=== PATIENT | male | born 1985 | race Caucasian/White ===

== ENCOUNTER 2017-05-31 23:38 | Emergency (ER) | payer OTHER ==
[2017-05-31 23:54] VITALS: RESP 16; O2SAT 100
[2017-06-01] MEDS ORDERED: Sodium Chloride 0.9% 1,000 ML IV ONE (00:03)
--- NOTE | 2017-06-01 00:04 | C.PDOC ---
History Of Present Illness 32 year old male presents to the ER with complaints of burning epigastric pain radiating up into his chest, nausea, vomiting, and watery diarrhea since approximately 17:00. Patient reports he ate [employer] earlier today. He denies recent sick contacts, dysuria/hematuria. Time Seen by Provider: 05/31/17 23:48 Chief Complaint (Nursing): Abdominal Pain History Per: Patient History/Exam Limitations: no limitations Onset/Duration Of Symptoms: Hrs Current Symptoms Are (Timing): Still Present Severity: Moderate Location Of Pain/Discomfort: Epigastric Radiation Of Pain To:: Chest Quality Of Discomfort: Burning Associated Symptoms: Nausea, Vomiting, Diarrhea Exacerbating Factors: None Alleviating Factors: None Past Medical History Reviewed: Historical Data, Nursing Documentation, Vital Signs Vital Signs: Last Vital Signs Temp 98.8 F 06/01/17 02:04 Pulse 80 06/01/17 02:04 Resp 16 06/01/17 02:04 BP 110/67 06/01/17 02:04 Pulse Ox 100 06/01/17 02:04 - Medical History PMH: Hypercholesterolemia Surgical History: No Surg Hx Family History: States: No Known Family Hx - Social History Hx Tobacco Use: No Hx Alcohol Use: Yes (social) Hx Substance Use: No - Immunization History Hx Tetanus Toxoid Vaccination: Yes (3 years ago) Hx Influenza Vaccination: No Hx Pneumococcal Vaccination: No Review Of Systems Except As Marked, All Systems Reviewed And Found Negative. Constitutional: Negative for: Fever, Chills Cardiovascular: Negative for: Chest Pain Respiratory: Negative for: Cough, Shortness of Breath Gastrointestinal: Positive for: Nausea, Vomiting, Abdominal Pain (Epigastric radiating to chest), Diarrhea Physical Exam - Physical Exam Appears: Well, Non-toxic, Other (Anxious, Mildly uncomfortable) Skin: Normal Color, Warm, Dry Oral Mucosa: Moist Neck: Supple Cardiovascular: Rhythm Regular Respiratory: Normal Breath Sounds, No Rales, No Rhonchi, No Wheezing Gastrointestinal/Abdominal: Bowel Sounds, Soft, Tenderness (Mild epigastric TTP) , No Guarding, No Rebound, No Other (Mcburney's, Huff's) Back: Normal Inspection, No CVA Tenderness Neurological/Psych: Oriented x3 ED Course And Treatment - Laboratory Results Result Diagrams: 06/01/17 00:43 06/01/17 00:43 O2 Sat by Pulse Oximetry: 100 (Room air) Pulse Ox Interpretation: Normal Progress Note: Blood work, UA ordered and reviewed. Patient given IV NS bolus, IV pepcid and IV zofran. Reevaluation Time: :50 Reassessment Condition: Improved (On reassessment, patient is resting comfortably and states he is feeling better. On exam, abdomen is soft and nontender. Rxs given for pepcid, zofran and bentyl. Patient instructed to drink plenty of clear fluids, advance to bland diet slowly, and to follow up with PMD/clinic in 1-2 days. He understands he should return to ED if symptoms worsen.) Disposition Counseled Patient/Family Regarding: Studies Performed, Diagnosis, Need For Followup, Rx Given - Disposition Referrals: [facility] [Outside] Disposition: HOME/ ROUTINE Disposition Time: :50 Condition: STABLE Additional Instructions: SEGUIMIENTO CON CROWDER MDICO / CLNICA EN 1-2 CASTELLANOS USE MEDICAMENTOS SEGN SEA NECESARIO YOHAN UN MONTN DE FLUIDOS GARRISON REGRESE AL LORENA DE EMERGENCIA SI LOS SNTOMAS EMPEORAN Prescriptions: Dicyclomine [Bentyl] 20 mg PO Q6 PRN #12 tab PRN Reason: ABDOMINAL CRAMPING Famotidine [Pepcid] 20 mg PO BID PRN #15 tab PRN Reason: abdominal Ondansetron [Zofran Odt] 4 mg PO Q8 PRN #12 odt PRN Reason: Nausea/Vomiting Instructions: Acute Nausea and Vomiting (ED), Acute Diarrhea (ED) Forms: [facility] (Kiswahili), Work Excuse Print Language: TRISTANIAN - POA Present On Arrival: None - Clinical Impression Clinical Impression: Diarrhea, Vomiting, Nausea - Scribe Statement The provider has reviewed the documentation as recorded by the Scribtay Zimmerman All medical record entries made by the Scribe were at my direction and personally dictated by me. I have reviewed the chart and agree that the record accurately reflects my personal performance of the history, physical exam, medical decision making, and the department course for this patient. I have also personally directed, reviewed, and agree with the discharge instructions and disposition.
[2017-06-01] MEDS ORDERED: Sodium Chloride 0.9% 1,000 ML ONE (00:29)
[2017-06-01 00:48] LABS: BASO # 0.1 K/uL (0.0-0.2); BASO % 0.6 % (0.0-2.0); EOS # 0.1 K/uL (0.0-0.7); EOS % 0.5 % (0.0-4.0); HEMATOCRIT 43.2 % (35.0-51.0); LYMPH # 1.7 K/uL (1.0-4.3); LYMPH % 14.3 % (20.0-40.0); MEAN CELL VOLUME 87.2 fL (80.0-94.0); MEAN CORPUSCULAR HEMOGLOBIN 29.9 pg (27.0-31.0); MEAN CORPUSCULAR HGB CONC 34.3 g/dL (33.0-37.0); MEAN PLATELET VOLUME 8.1 fL (7.2-11.7); MONO # 0.8 K/uL (0.0-0.8); MONO % 6.8 % (0.0-10.0); RED CELL DISTRIBUTION WIDTH 13.7 % (11.5-14.5); WHITE BLOOD COUNT 11.9 K/uL (4.8-10.8)
[2017-06-01 00:54] LABS: CHLORIDE 100 mmol/L (98-107)
[2017-06-01 00:55] LABS: POTASSIUM 3.6 mmol/L (3.6-5.2); SODIUM 136 mmol/L (132-148)
[2017-06-01 00:57] LABS: ALB/GLOB RATIO 1.2 (1.0-2.1); ALKALINE PHOSPHATASE 74 U/L (38-126); ALT/SGPT 67 U/L (21-72); AST/SGOT 33 U/L (17-59); BLOOD UREA NITROGEN 17 mg/dL (9-20); CARBON DIOXIDE 24 mmol/L (22-30); GFR AFRICAN-AMERICAN > 60; GLUCOSE,RANDOM 110 mg/dL (75-110); TOTAL PROTEIN 8.4 g/dL (6.3-8.3)
[2017-06-01 01:03] LABS: RBC URINE 1 /hpf (0-3); URINE BILIRUBIN NEGATIVE (NEGATIVE); URINE COLOR Yellow (YELLOW); URINE GLUCOSE (UA) NORMAL (Normal); URINE KETONE NEGATIVE (NEGATIVE); URINE LEUKOCYTE ESTERASE NEG Leu/uL (Negative); URINE PROTEIN 1+ mg/dL (NEGATIVE); URINE UROBILINOGEN NORMAL mg/dL (0.2-1.0); WBC URINE 2 /hpf (0-5)
[2017-06-01 01:05] LABS: URINE BLOOD NEGATIVE (NEGATIVE)
[2017-06-01 02:05] VITALS: BP 110/67; PULSE 80; TEMP 98.8
== END 2017-06-01 02:04 | disposition home or self-care (01) ==
LOC: C.ER 23:38
DX: R11.2 Nausea with vomiting, unspecified (principal); R19.7 Diarrhea, unspecified; E78.00 Pure hypercholesterolemia, unspecified
CPT/HCPCS: 80053; 81001; 83690; 85025; 96361; 96374; 96375; 99284; J2405; J7040

== ENCOUNTER 2017-11-26 18:45 | Emergency (ER) | payer SELFPAY ==
[2017-11-26 19:00] VITALS: RESP 20
--- NOTE | 2017-11-26 19:50 | C.PDOC ---
History Of Present Illness 32 y/o male, referred by Mellissa Arauz APN at [facility], presents to the ER complaining of mid sternal chest pain which has been present since last night. Patient states the pain is intermit and radiation l arm. Occ sob. Patient reports that he took Aspirin 160 mg at 4 pm today. He notes that he had similar episode of chest pain in the past but he does not remember if he had a follow-up. He denies having associated symptoms at this time. Time Seen by Provider: 11/26/17 19:08 Chief Complaint (Nursing): Chest Pain History Per: Patient History/Exam Limitations: no limitations Onset/Duration Of Symptoms: Days Current Symptoms Are (Timing): Still Present Severity: Moderate Past Medical History Reviewed: Historical Data, Nursing Documentation, Vital Signs Vital Signs: Last Vital Signs Temp 99.5 F 11/26/17 18:58 Pulse 77 11/26/17 20:32 Resp 20 11/26/17 20:32 BP 131/78 11/26/17 20:32 Pulse Ox 97 11/26/17 20:32 - Medical History PMH: Hypercholesterolemia Surgical History: No Surg Hx Family History: States: No Known Family Hx - Social History Hx Tobacco Use: No Hx Alcohol Use: Yes (social) Hx Substance Use: No - Immunization History Hx Tetanus Toxoid Vaccination: Yes Hx Influenza Vaccination: No Hx Pneumococcal Vaccination: No Review Of Systems Except As Marked, All Systems Reviewed And Found Negative. Constitutional: Negative for: Fever, Chills Cardiovascular: Positive for: Chest Pain. Negative for: Palpitations Respiratory: Negative for: Cough, Shortness of Breath Physical Exam - Physical Exam Appears: Non-toxic, No Acute Distress Skin: Normal Color, Warm Head: Atraumatic, Normacephalic Eye(s): bilateral: Normal Inspection Cardiovascular: Rhythm Regular Respiratory: Normal Breath Sounds, No Rales, No Rhonchi, No Wheezing Neurological/Psych: Oriented x3, Normal Speech ED Course And Treatment - Laboratory Results Result Diagrams: 11/26/17 20:14 11/26/17 20:14 O2 Sat by Pulse Oximetry: 98 (RA) Pulse Ox Interpretation: Normal - Radiology CXR: Interpreted by Me, Viewed By Me CXR Interpretation: Yes: No Acute Disease Progress - Re-Evaluation Re-evaluation Note: 11/26/17 20:50 exam unch prior vss d/w dr helton will admit. REQUESTING UDS - Data Reviewed Data Reviewed: Lab, Diagnostic imaging, EKG (NSR , 81 bpm), Old records Medical Decision Making Medical Decision Making: Plan: --Labs --EKG --CXR Disposition Counseled Patient/Family Regarding: Studies Performed, Diagnosis - Disposition Disposition: HOSPITALIZED Disposition Time: 20:50 Condition: STABLE Forms: [facility] (Anguillan) - POA Present On Arrival: None - Clinical Impression Clinical Impression: Chest pain, SOB (shortness of breath) - Scribe Statement The provider has reviewed the documentation as recorded by the Rickyibe Denis Land Provider Attestation: All medical record entries made by the Scribe were at my direction and personally dictated by me. I have reviewed the chart and agree that the record accurately reflects my personal performance of the history, physical exam, medical decision making, and the department course for this patient. I have also personally directed, reviewed, and agree with the discharge instructions and disposition. Decision To Admit - Pt Status Changed To: Hospital Disposition Of: Observation - . Bed Request Type: Telemetry Admitting Physician: Willie Helton Patient Diagnosis: Chest pain, SOB (shortness of breath)
[2017-11-26 20:15] LABS: BASO % 0.5 % (0.0-2.0); EOS % 0.7 % (0.0-4.0); HEMOGLOBIN 14.4 g/dL (12.0-18.0); LYMPH # 2.8 K/uL (1.0-4.3); MEAN CELL VOLUME 86.2 fL (80.0-94.0); MEAN CORPUSCULAR HEMOGLOBIN 30.6 pg (27.0-31.0); MEAN CORPUSCULAR HGB CONC 35.5 g/dL (33.0-37.0); MEAN PLATELET VOLUME 7.6 fL (7.2-11.7); MONO # 0.3 K/uL (0.0-0.8); MONO % 5.2 % (0.0-10.0); NEUT # 3.5 K/uL (1.8-7.0); NEUT % 52.6 % (50.0-75.0); RBC 4.71 Mil/uL (4.40-5.90); RED CELL DISTRIBUTION WIDTH 13.5 % (11.5-14.5); WHITE BLOOD COUNT 6.7 K/uL (4.8-10.8)
[2017-11-26 20:28] LABS: ALB/GLOB RATIO 1.2 (1.0-2.1); ALBUMIN 4.3 g/dL (3.5-5.0); ALT/SGPT 41 U/L (21-72); AST/SGOT 30 U/L (17-59); BLOOD UREA NITROGEN 13 mg/dL (9-20); GFR AFRICAN-AMERICAN > 60; GFR NON-AFRICAN AMERICAN > 60
[2017-11-26 20:33] VITALS: BP 131/78; PULSE 77
[2017-11-26] MEDS ORDERED: Nitroglycerin 2% Ointment Foilpak UD TOP STA (20:34)
[2017-11-26] MEDS ORDERED: Nitroglycerin 2% Ointment Foilpak UD TOP ONE (20:40)
[2017-11-26 20:51] VITALS: O2SAT 98
[2017-11-26 21:14] LABS: BARBITURATES, UR NEGATIVE (NEGATIVE); BENZODIAZEPINES, UR NEGATIVE (NEGATIVE); OPIATES, UR NEGATIVE (NEGATIVE); PHENCYCLIDINE, UR NEGATIVE (NEGATIVE)
[2017-11-26 21:36] VITALS: TEMP 98
--- NOTE | 2017-11-27 10:24 | RAD ---
PROCEDURE: CHEST RADIOGRAPH, 1 VIEW HISTORY: Chest pain COMPARISON: Comparison chest dated 02/22/2016 FINDINGS: LUNGS: Clear. PLEURA: No pneumothorax or pleural fluid seen. CARDIOVASCULAR: Heart appears mildly enlarged. OSSEOUS STRUCTURES: No significant abnormalities. VISUALIZED UPPER ABDOMEN: Normal. OTHER FINDINGS: None. IMPRESSION: No acute infiltrates.
== END 2017-11-26 21:16 | disposition left against medical advice (07) ==
LOC: C.ER 18:45 → C.9E 20:51 → UNDOADMOB 20:51 → C.6T 21:03 → C.9E 21:03 → C.ER 21:16
DX: R07.9 Chest pain, unspecified (principal); R06.02 Shortness of breath; E78.00 Pure hypercholesterolemia, unspecified
CPT/HCPCS: 71045; 80053; 84484; 85025; 99285; G0480